=== PATIENT | female | born 1985 | race Caucasian/White ===

== ENCOUNTER 2017-09-21 17:15 | Observation (INO) | payer BC ==
--- NOTE | 2017-09-21 18:24 | PDGENHP ---
History and Physical - Chief Complaint vaginal bleeding - History of Present Illness 32 at 40w6d by 9 wk US, here for vaginal bleeding. She started having contractions at 0100, intermittently all night and day, though not regular or painful. Started having some bloody show earlier today, and has passed 3-4 quarter sized clots today - made her anxious. Does not desire induction. Desires natural labor with minimal intervention. care uncomplicated - low lying placenta noted at 20 weeks, resolved to 3.6cm from cervical os posteriorly. labs all normal, except for being Rubella non-immune. GBS neg B pos Innatal neg, Std Panel neg. 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 O: VSS afeb 36.8 85 108/63 FHR - 135 reactive, Cat 1, + accels, no decels toco - irreg, 7 ctxns in 75min gen - pleasant, NAD CV - RRR chest - CTAB abd - gravid, soft, NT ext - calves NT, trace edema SVE 4/80/-2 US done - cephalic, MVP 3.26, SLIM 6.3cm, active fetus, post placenta History Information - Allergies/Home Medication List Allergies/Adverse Reactions: No Known Allergies Allergy (Unverified 09/21/17 18:52) I have personally reviewed and updated: family history, medical history, social history, surgical history - Social History Smoking Status: Former smoker Review of Systems Review of Systems: ROS: 10pt was reviewed & negative except for what was stated in HPI & below Physical Exam Physical Exam: Assessment & Plan Assessment: 32 at 40w6d by 9 wk US in likely early labor, with some bloody show. status reassuring. Offered induction at midnight - 41 weeks - declined. Prefers homegoing - strict movement precautions reviewed - to come back immediately if not fulfilled. May come back for monitoring or IOL at anytime after midnight tonight - 41 wk. Does not need to come back for NST/fluid check tomorrow - may come back in 2 d, on Sunday, or keep appointment in 3 d on Sun, at 41w2d, since did NST and fluid check tonight. Sindhu Rivera MD, [facility]
== END 2017-09-21 20:13 | disposition home or self-care (01) ==
LOC: FLD 17:15
PROVIDERS: ADMIT Hospitalist; ATTEND Hospitalist
DX: Z03.79 Encounter for other suspected maternal and fetal conditions ruled out (principal); Z3A.40 40 weeks gestation of pregnancy
CPT/HCPCS: 59025; G0378

== ENCOUNTER 2017-09-23 02:40 | Inpatient (IN) | payer BC ==
[2017-09-23] MEDS ORDERED: MISOPROSTOL 200 MCG TAB PR PRN (03:34)
[2017-09-23] MEDS ORDERED: TERBUTALINE SULFATE 1 MG/ML VIAL IV PRN (03:34)
[2017-09-23] MEDS ORDERED: IBUPROFEN 600 MG TAB PO PRN (03:34)
[2017-09-23] MEDS ORDERED: LIDOCAINE 1% 300 MG/30 ML SDV SC PRN (03:34)
[2017-09-23] MEDS ORDERED: OLIVE OIL 118 ML BTL MISC PRN (03:34)
[2017-09-23] MEDS ORDERED: LR 1,000 ML IV PRN (03:34)
[2017-09-23] MEDS ORDERED: EPSOM SALT 454 GM TP PRN (03:34)
[2017-09-23] MEDS ORDERED: OXYTOCIN/RINGERS LACTATE 1,000 ML IV PRN (03:34)
--- NOTE | 2017-09-23 04:43 | GHP ---
[f rep st] PREOP HISTORY AND PHYSICAL DATE OF ADMISSION: 09/23/2017 ADMITTING DIAGNOSIS: Intrauterine at 41-and-1/7-weeks gestation in active labor. HISTORY OF PRESENT ILLNESS: This patient is a 32-year-old, 2, para 1-0-0-1, with a last mens trual period of 12/03/2016 and an EDC of 09/15/2016 confirmed by a first trimester ultrasound. Delisa campos has had good care at [facility] since registration at 10 weeks gestation, and h er dates were confirmed by an ultrasound at 9-and-6/7-weeks. Her risk factors include nonim mune to rubella and postdates. She had postdates testing on the , and she had a normal MVP and r eactive nonstress test. Was sent home with labor precautions. Patient presented in the morning of t with increasing contractions 5 minutes apart. She is intact. Denies vaginal bleeding, leaka ge of fluid. Has had good movement. heart tones are 140s, reactive moderate variability , category 1. She is jolie irregularly. Cervix per RN exam is 5 cm, 80%, -2, and she is cepha lic. Patient will be admitted for active labor management. Patient at this point desires natural la bor. PAST OBSTETRICAL HISTORY: In May 2014, she had a viable male 9 pounds 8 ounces, 41 weeks, vagin al delivery without complication. This is her second . 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 She has long cycles every 35 to 42 days, length of 5 to 7 days. She is certain about her last menstrual period of 12/03/2016. She has a history of abnormal P ap. 2006 had colposcopy. No biopsies. No treatment necessary. 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 No other gynecological issues. No specific past medical problems. SURGICAL HISTORY: Only wisdom teeth extraction. ALLERGIES: She has no known drug allergies. MEDICATIONS: Include vitamins and DHA. LABS: She is B positive. Antibody negative. RPR nonreactive. Rubella nonimmune. Hepatitis B nega tive. HIV negative. Standard panel negative. Pap normal, negative. Gonorrhea and chlamydia negati ve. 1-hour GTT 104. And GBS is negative. SOCIAL HISTORY: She is . She lives with her , Beck, and her son. 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 She denies tobacco, alcohol, and drug use. FAMILY HISTORY: Her mother and sister and maternal grandmother have chronic hypertension. Father berry s hyperthyroidism. Paternal grandmother had breast cancer in her 60s. Paternal grandfather and mate rnal grandfather both had prostate cancer. Maternal grandfather has dementia. No other significant medical history. OBJECTIVE: Today, she is afebrile. Vital signs are stable. heart tones 130s, reactive, moder ate variability, category 1. Contractions irregular. Cervix 5 cm. ASSESSMENT/PLAN: 32-year-old 2, para 1-0-0-1, at 41-and-2/7-weeks gestation in active labor. Patient will be admitted for active labor management. At this point, she desires natural labor wit hout pain management. She may be open to nitrous p.r.n. /[id number]/MODL
--- NOTE | 2017-09-23 06:19 | OBPROG ---
Labor Progress Note Assessment/Plan: Assessment: 32 y/o @ 41 2/7 weeks in labor Plan: Pt has made small change since admission and contractions have gotten irregular. I offered AROM, but pt has declined for now. status reassuring. 09/23/17 06:22 Subjective/Intrapartum Course: 09/23/17 06:13 Pt is feeling that the contractions have spaced out. She is walking to try to keep them consistent. She denies LOF, some min vaginal bleeding. - SVE Dilation (cm): 6 Effacement (%): 90 Station: 0 Membranes: Intact - Contraction Pattern Assessment Current Contraction Pattern: Irregular (Q 3-5) - FHR Assessment Robles FHR (bpm): 140 FHR Pattern Variability: Moderate FHR Category: 1 - AP Antepartum Course: 09/23/17 06:19 non-immune Rubella Oxytocin Orders Assessment - Pre-Induction/Augmentation Assessment Gestational Age: 41 week(s) and 1 day(s) ICD10 Worksheet Patient Problems: Problems Problem Status Onset Normal labor Acute - ICD10 Problem Qualifiers (1) Normal labor
[2017-09-23] MEDS ORDERED: OLIVE OIL 118 ML BTL ONE (06:34)
[2017-09-23] MEDS ORDERED: TERBUTALINE SULFATE 1 MG/ML VIAL ONE (06:34)
[2017-09-23] MEDS ORDERED: AMMONIA AROMATIC 1 EACH AMP IH ONE (06:34)
[2017-09-23] MEDS ORDERED: LIDOCAINE 1% 300 MG/30 ML SDV ONE (06:34)
[2017-09-23] MEDS ORDERED: MISOPROSTOL 200 MCG TAB ONE (06:34)
[2017-09-23] MEDS ORDERED: OXYTOCIN 10 UNIT/ML VIAL ONE (06:34)
[2017-09-23 06:44] LABS: PLATELET COUNT 152 10^3/uL (150-400)
--- NOTE | 2017-09-23 11:55 | OBPROG ---
Labor Progress Note Assessment/Plan: Assessment:32 at 41w1d in spontaneous labor, now with arrest of dilation x 8 hours - agreed to AROM. Plan:AROM done - meconium present If no progress in next 2 hours, may need to consider pitocin augmentation. 09/23/17 11:52 Subjective/Intrapartum Course: 09/23/17 06:13 Pt is feeling that the contractions have spaced out. She is walking to try to keep them consistent. She denies LOF, some min vaginal bleeding. 09/23/17 11:54 Doing, though contractions still spaced out, getting tired. After some discussion and cervix check noting to cervical change, agreed to proceed with AROM. Objective: 09/23/17 06:10 Patient ABO/Rh B POSITIVE 09/23/17 06:10 abd - gravid, soft, NT SVE - 6.5 / 90 / 0, AROM performed, meconium fluid - SVE Dilation (cm): 7 Effacement (%): 90 Station: 0 Membranes: Intact Amniotic Fluid Color: Meconium Stained - Contraction Pattern Assessment Current Contraction Pattern: Regular, Irregular (Q 3-5) - Procedures Non-surgical Procedures: Amniotomy - AP Antepartum Course: 09/23/17 06:19 non-immune Rubella Oxytocin Orders Assessment - Pre-Induction/Augmentation Assessment Gestational Age: 41 week(s) and 1 day(s) ICD10 Worksheet Patient Problems: Problems Problem Status Onset Normal labor Acute
--- NOTE | 2017-09-23 13:15 | OBPROG ---
Labor Progress Note Assessment/Plan: Assessment:32 at 41w1d in spontaneous labor, now with arrest of dilation x 8 hours - agreed to AROM. Plan:AROM done - meconium present If no progress in next 2 hours, may need to consider pitocin augmentation. 09/23/17 11:52 A/P: 32 P2P1 at 41w1d with slow progress in labor, despite AROM just over an hour ago. Now desires epidural -anesthesia notified. Will reassess after epidural in place. Stacey Rivera MD 09/23/17 13:05 Subjective/Intrapartum Course: 09/23/17 06:13 Pt is feeling that the contractions have spaced out. She is walking to try to keep them consistent. She denies LOF, some min vaginal bleeding. 09/23/17 11:54 Doing, though contractions still spaced out, getting tired. After some discussion and cervix check noting to cervical change, agreed to proceed with AROM. Objective: 09/23/17 06:10 Patient ABO/Rh B POSITIVE 09/23/17 06:10 37.1 about 2 hr ago FHR 130 reactive right after AROM Will start continuous monitoring now as requesting epidural. SVE 8/ 100/ 0 - 1.5 cm change in 1.25 hour - SVE Dilation (cm): 8 Effacement (%): 100 Station: 0 Membranes: Intact Amniotic Fluid Color: Meconium Stained - Contraction Pattern Assessment Current Contraction Pattern: Regular, Irregular (Q 3-5) - FHR Assessment Robles FHR (bpm): 130 FHR Pattern Variability: Moderate FHR Category: 1 - Procedures Non-surgical Procedures: Amniotomy - AP Antepartum Course: 09/23/17 06:19 non-immune Rubella Oxytocin Orders Assessment - Pre-Induction/Augmentation Assessment Gestational Age: 41 week(s) and 1 day(s) ICD10 Worksheet Patient Problems: Problems Problem Status Onset Normal labor Acute
[2017-09-23] MEDS ORDERED: fentaNYL 100 MCG/2 ML INJ ONE (13:23)
[2017-09-23] MEDS ORDERED: BUPIVACAINE 0.25% 30 ML SDV ONE (13:24)
[2017-09-23] MEDS ORDERED: PHENYLEPHRINE HCL 100 MCG/ML SYR ONE (13:24)
[2017-09-23] MEDS ORDERED: fentaNYL 200 MCG, BUPIVACAINE 0.5% 20 ML in NS 100 ML EP SCH (13:30)
[2017-09-23] MEDS ORDERED: METHYLERGONOVINE MAL 0.2 MG/ML INJ ONE (14:01)
--- NOTE | 2017-09-23 14:35 | OBDEL ---
Info Type: Vaginal Presentation at Delivery: Vertex L&D Analgesia/Anesthesia Type: Local GBS+: No - Hospital Course Intrapartum: 09/23/17 06:13 Pt is feeling that the contractions have spaced out. She is walking to try to keep them consistent. She denies LOF, some min vaginal bleeding. 09/23/17 11:54 Doing, though contractions still spaced out, getting tired. After some discussion and cervix check noting to cervical change, agreed to proceed with AROM. Indications for Delivery: Spontaneous Labor Vaginal Delivery - Delivery Provider Delivery Physician/CNM: Sindhu Rivera - Labor and Delivery Onset of Contractions Date: 09/23/17 Onset of Contractions Time: 00:30 Onset of Contractions Type: Spontaneous Rupture of Membranes Date: 09/23/17 (AROM) Rupture of Membranes Time: 11:45 Rupture of Membranes Type: Artificial Amniotic Fluid Color: Meconium Stained Dilation Complete Date: 09/23/17 Dilation Complete Time: 13:26 Placenta Delivery Date: 09/23/17 Placenta Delivery Time: 13:54 Total Hours of Labor: 13 Non-surgical Procedures: Amniotomy Laceration: 2nd Degree, Other (Specify) (periurethral, subclitoral) Repair: 3-0, Vicryl Vaginal Sponge Count Correct: Yes Vaginal Needle Count Correct: Yes Vaginal Sweep Performed: Yes EBL: 600 - atony, resolved with IV pitocin and 800mcg misoprostil per rectum Delivery Events: None Delivery Comment: As the anesthesiologist was entering the room to place the epidural as requested by the patient, she was found to be completely dilated. Preparation for delivery ensued and no epidural was placed. She pushed on her right side for about 20 min. Delivery of vertex LUIS, bulb suctioned on the perineum. No nuchal cord. With minimal downward traction, the left shoulder was easily delivered followed by the rest of the body. Baby was placed immediately on the maternal chest and abdomen. 1 min delay of cord clamping. The placenta delivered 4 minutes after delivery of the , spontaneously, followed by a flow of bleeding which did not resolve with bimanual uterine massage. 800mcg misoprostil was placed per rectum. A manual sweep was performed to remove clots from the lower uterine segment. Bleeding then slowed significantly. A subclitoral / periurethral tear was repaired with 3.0 Vicryl after infiltration with 5 ml of 1% lidocaine. Another 5 ml of 1% lidocaine was infiltrated into the 2nd degree perineal laceration, which was also repaired with 3.0 Vicryl. Apgars 9 at 1 min, 9 at 5 min. Sponge, lap and needle counts were correct x 2. Pt was left in stable condition with RN present in room. [place] Data MIKI: 09/15/17 Gestational Age: 41 week(s) and 1 day(s) Robles Delivery Date: 09/23/17 Delivery Time: 13:50 Sex of : Female Score (1 Min): 9 Score (5 Min): 9 Shoulder Dystocia Time Head Delivered: 13:50 Time Body Delivered: 13:50 ICD10 Worksheet Patient Problems: Problems Problem Status Onset Normal labor Acute Normal vaginal delivery Acute Normal vaginal delivery of 10th Acute Normal vaginal delivery of second Acute - ICD10 Problem Qualifiers (1) Normal vaginal delivery of second (2) Normal vaginal delivery of 10th (3) Normal vaginal delivery
[2017-09-23] MEDS ORDERED: SIMETHICONE 80 MG TAB CHEW PO PRN (14:48)
[2017-09-23] MEDS ORDERED: HYDROCORTISONE 0.5% CREAM TP PRN (14:48)
[2017-09-23] MEDS: FERRO-SEQUELS 65 MG TAB.ER PO SCH (20:33)
[2017-09-23] MEDS: IBUPROFEN 600 MG TAB PO SCH (20:33)
[2017-09-24] MEDS: IBUPROFEN 600 MG TAB PO SCH ×5 (03:09→22:24)
[2017-09-24] MEDS: DOCUSATE SODIUM 100 MG CAP PO PRN ×2 (09:45→22:24)
[2017-09-24] MEDS: FERRO-SEQUELS 65 MG TAB.ER PO SCH ×2 (09:46→22:24)
--- NOTE | 2017-09-24 13:28 | OBPP ---
Progress Note Assessment/Plan: Assessment: PPD1 s/p complicated by PPH 600cc addressed with IV Pitocin and rectal misoprostol. PPH: Hct 22 this AM, will repeat 12 hrs later to trend, keep IV in. PO iron supps for now. BP normal, mild tachycardia this AM, no sx. Discussed reasons/ criteria for blood transfusion and I don't think she warrants that at this point. If HH stable this evening can take IV out, as pt requesting this. Lochia minimal. Otherwise routine orders - likely home tomorrow. Rh positive, GBS negative. Rubella NON-immune, needs MMR prior to dc. JM Subjective/ Course: Lisette is doing well this AM - had been feeling dizzy and lightheaded after delivery yesterday evening, but those sx all gone today. On PO Iron, Hct 22 this AM as below. Denies all sx of anemia/orthostatics. BF going well. Pain controlled. Objective: 09/24/17 06:00 Patient ABO/Rh B POSITIVE 09/23/17 06:10 Temp Pulse Resp BP Pulse Ox 36.2 C 115 H 18 104/62 95 09/24/17 08:00 09/24/17 08:00 09/24/17 08:00 09/24/17 08:00 09/24/17 08:00 Laboratory Tests 02/20/17 08/22/17 09/23/17 10:02 17:45 06:10 Rubella IgG Antibody 5.57 Group B Strep DNA NEGATIVE Patient ABO/Rh B POSITIVE Antibody Screen NEGATIVE Uterine Position/Fundal Height: At Umbilicus Uterine Tone: Firm
[2017-09-24] MEDS ORDERED: IRON POLYSAC/IRON HEME 28 MG TAB PO SCH (13:30)
[2017-09-24] MEDS ORDERED: MEASLES,MUMPS&RUBELLA VACC/PF 0.5 ML VIAL SC ONE (20:47)
[2017-09-25] MEDS: IBUPROFEN 600 MG TAB PO SCH ×2 (06:20→14:00)
[2017-09-25] MEDS: FERRO-SEQUELS 65 MG TAB.ER PO SCH (07:54)
[2017-09-25 09:53] VITALS: BP 91/57
--- NOTE | 2017-09-25 10:05 | OBGCSDC ---
General Delivery Information - General Info : 2 Para: 2 Abortions: 0 Type: Vaginal L&D Analgesia/Anesthesia Type: Local Admission Date: 09/23/17 Labs: Patient ABO/Rh B POSITIVE 09/23/17 06:10 Hct 23.5 % (38.0-47.0) L 09/24/17 18:25 - Hospital Course Antepartum: 09/23/17 06:19 non-immune Rubella Intrapartum: 09/23/17 06:13 Pt is feeling that the contractions have spaced out. She is walking to try to keep them consistent. She denies LOF, some min vaginal bleeding. 09/23/17 11:54 Doing, though contractions still spaced out, getting tired. After some discussion and cervix check noting to cervical change, agreed to proceed with AROM. : Lisette is doing well this AM - had been feeling dizzy and lightheaded after delivery yesterday evening, but those sx all gone today. On PO Iron, Hct 22 this AM as below. Denies all sx of anemia/orthostatics. BF going well. Pain controlled. 09/25/17 10:03 S) Pt doing well, reports min pain and bleeding. she is ambulating and voiding without difficulty. Denies dizziness today. Tolerating activity well. She is . She desires discharge home today. O) VSS, afebrile constitutional: WNWF, A&Ox3 HEENT: normocephalic, atraumatic, supple Heart: RRR, No murmur Chest: CTA-B Abdomen: Soft, nontender Uterus: Firm at U-2 Lochia: Minimal rubra Perineum: healing well Extremities: Trace edema, and negative Gia's sign Neuro: Grossly normal A) 32 year-old S/P PPD#2 Anemic - HCT 23 -asymptomatic P) Discharge home today Continue Pelvic rest x6wks Discussed danger signs (infection, preeclampsia, depression, heavy bleeding, etc) Encourage iron rich foods and RX for bid iron RTO in 2/4/6 weeks 09/25/17 10:06 Vaginal - Delivery Provider Delivery Physician/CNM: Sindhu Rivera - Diagnosis Labor: Spontaneous Rupture of Membranes Type: Artificial Amniotic Fluid Color: Meconium Stained Laceration: 2nd Degree, Other (Specify) (periurethral, subclitoral) Repair: 3-0, Vicryl Delivery Events: None - Procedures Non-surgical Procedures: Amniotomy - Delivery Non-surgical Procedures: Amniotomy EBL: 600 - atony, resolved with IV pitocin and 800mcg misoprostil per rectum [place] Data MIKI: 09/15/17 Gestational Age: 41 week(s) and 3 day(s) Robles Delivery Date: 09/23/17 Delivery Time: 13:50 Sex of Infant: Female [place] Weight (gm): 4008 g Score (1 Min): 8 Score (5 Min): 9 Discharge Information - Discharge Information Prescriptions: Ibuprofen [Motrin (*)] 600 mg PO Q6HRS #30 tab Docusate Sodium [Colace 100 MG (*)] 100 mg PO BID PRN #60 cap PRN Reason: Constipation Iron/Vit C/Docusate [Dmitry-Sequels 65 mg (*)] 1 each PO BID #60 tab.er Condition: Good Instruction/Follow Up: Two Weeks, Four Weeks, Six Weeks
== END 2017-09-25 12:15 | disposition home or self-care (01) | DRG 775 ==
LOC: FLD 02:40 → FOB 20:06
PROVIDERS: ADMIT Obstetrics & Gynecology; ATTEND Obstetrics & Gynecology
PROC: 10E0XZZ Delivery of Products of Conception, External Approach (ICD-10-PCS; principal; 2017-09-23)
PROC: 0KQM0ZZ Repair Perineum Muscle, Open Approach (ICD-10-PCS; principal; 2017-09-23)
PROC: 10907ZC Drainage of Amniotic Fluid, Therapeutic from Products of Conception, Via Natural or Artificial Opening (ICD-10-PCS; principal; 2017-09-23)
DX: O70.1 Second degree perineal laceration during delivery (principal); Z37.0 Single live birth; Z3A.41 41 weeks gestation of pregnancy
CPT/HCPCS: J2210; J2370; J2590; J3010; J3105